=== PATIENT | male | born 1940 | race Caucasian/White ===

== ENCOUNTER 2023-02-06 15:47 | Emergency (ER) | payer MEDICARE, SELFPAY ==
[2023-02-06 15:49] VITALS: BP 158/100; PULSE 107; RESP 16; TEMP 36.6; O2SAT 99; BMI 23.9
--- NOTE | 2023-02-06 16:10 | EKG12_ITS ---
Test Reason : DIZZINESS Blood Pressure : / mmHG Vent. Rate : 093 BPM Atrial Rate : 093 BPM P-R Int : 174 ms QRS Dur : 086 ms QT Int : 346 ms P-R-T Axes : 045 047 021 degrees QTc Int : 430 ms Normal sinus rhythm Normal ECG No previous ECGs available Confirmed by RAN ODONNELL, KALIE ([id number]), supervising editor trailer LAMIN BENITEZ ([id number]) on 02/08/2023 2:27:43 PM Referred By: NATALIA Confirmed By:KALIE TONG MD
--- NOTE | 2023-02-06 16:10 | CT_ITS ---
STUDY: CT BRAIN WITHOUT CONTRAST REASON FOR EXAM: Male, 82 years old. Dizziness RADIATION DOSAGE (If Supplied By Facility): CTDIvol = ( 44.99 ) mGy, DLP = ( 796.11 ) mGycm TECHNIQUE: Transaxial CT imaging of the brain was performed without administration of intravenous contrast material. Individualized dose optimization techniques were used for this CT. COMPARISON: No relevant priors. FINDINGS: Normal soft tissue structures. Normal calvarium. There is moderate cerebral atrophy with widening of the extra-axial spaces and ventricular dilatation. There are areas of decreased attenuation within the white matter tracts of the supratentorial brain, consistent with microvascular disease changes. Normal basal ganglia and thalami. Normal brainstem. There is mild cerebellar atrophy. There is no intracranial hemorrhage. There are no findings of an acute ischemic infarction. Normal visualized paranasal sinuses. CT/Brain/Head without Contrast IMPRESSION: Chronic involutional changes of the brain, no acute hemorrhage. Electronically Signed: Burke Ruiz MD at 17:27 EDT ,
--- NOTE | 2023-02-06 16:12 | EX.ED.DYSGE1 ---
HPI History of Present Illness Chief Complaint: Dizziness Informant: patient and spouse/S.O. Narrative Narrative: Patient presents with dizziness. Patient states that he has had episodes of dizziness off and on for 10 or 15 years. They do not run in any pattern. They may be months apart or maybe a year or more apart. He is never really seen anyone for them. They normally go away within a couple days. They are very positional. He states for 5 days ago he had dizziness badly in the morning. Sometimes he almost feels like he is going to pass out but is more falling over. He states the biggest thing that reproduces it if he lays down on his left side then he rolls over to his right. This is pretty consistent in the reproducing his symptoms. Of note, he has chronic significant tinnitus in his left ear. He takes Ativan for that. He is otherwise quite healthy. He has no blood pressure diabetes cholesterol smoking history or history of heart or stroke problems. He feels quite well other than this intermittent dizziness. When he is not vertiginous he feels perfectly fine. His vertigo/dizziness is reproduced with motions. [facility] Medical History History of prostate disorder Home Medications lorazepam 1 mg tablet (Ativan) 1 mg PO DAILY PRN 03/09/22 [History Last Taken Unknown] meclizine 25 mg tablet 25 mg PO 4X/DAY PRN PRN Dizziness #20 tabs 02/06/23 [Rx Last Taken Unknown] Allergy/AdvReac Type Severity Reaction Status Date / Time Penicillins Allergy Intermediate Other Verified 02/06/23 15:51 sulfamethoxazole Allergy Mild Rash Verified 02/06/23 15:51 [From Bactrim] trimethoprim [From Bactrim] Allergy Mild Rash Verified 02/06/23 15:51 Family History Mother Breast cancer at age 64 Brother Heart disease Hypertension High cholesterol Surgical History Hernia Social History (Updated 02/06/23 @ 16:22 by Violeta Mahmood) household members: spouse housing: house Smoking Status: Never smoker alcohol intake: former substance use type: does not use what type of physical activity do you participate in: walking ROS ROS ED ROS Narrative A complete review of systems was performed and is negative except as documented in the history of present illness. Some specific details below. Constitutional: No recent fevers or chills. No malaise. EYE: No discharge, visual complaints, or pain. No visual field cut ENT: No difficulty swallowing. No swelling. No pain. No reflux symptoms. CV: No chest pain or palpitations. No syncope. Respiratory: No cough or trouble breathing. GI: No abdominal pain. No nausea vomiting diarrhea. No blood in stool. : No frequency dysuria or hematuria. Musculoskeletal: No recent trauma. No pains. No swelling. Skin: No rash. Nondiaphoretic. Neuro: No focal weakness or numbness. See history of present illness Endocrine: No polyuria or polydipsia. EXAM Physical Exam Narrative Exam Narrative: CONSTITUTIONAL: Patient is nontoxic in appearance. The patient looks comfortable. Work of breathing looks normal. HEENT: No notable trauma. Mucous membranes moist. No sinus tenderness. Hearing aids in both ears. EYES: No conjunctival injection. No proptosis. No pain with range of motion. No pallor. No visual field cut. NECK: No meningismus. No JVD. CARDIOVASCULAR: Regular rate. Regular rhythm. No notable murmur. No JVD. No muffled tones. RESPIRATORY: No respiratory distress. Breathing is unlabored. No wheezes. No rhonchi. No rales. No pain with a deep breath. GASTROINTESTINAL: Not distended. Bowel sounds are normal. No tenderness. No guarding. No rebound. No palpable mass. No bruit. GENITOURINARY: No tenderness over the bladder. No CVA tenderness. MUSCULOSKELETAL: Atraumatic. No peripheral edema. NEUROLOGICAL: Patient is alert and oriented. No focal deficit noted. NIH stroke scale is 0. I had the patient lay back and lay back looking to the right and he really got no symptoms at all. We had him roll to the left lay him back and he got mild dizziness with very subtle horizontal nystagmus. He then rolled over to the right side and after about 5 to 10 seconds of a delay, he got nystagmus and very dizzy. He does not get nauseated. He told me that this would be the motion that would cause his symptoms the most. SKIN: No noted rashes. No diaphoresis. No vesicles noted. No notable pallor. PSYCHIATRIC: Patient is calm. Mood is appropriate. Const Vital Signs: 02/06/23 15:49 02/06/23 16:36 02/06/23 18:00 Temperature 97.8 F Temperature Source Temporal Pulse Rate 107 H 94 66 Respiratory Rate 16 16 16 Blood Pressure 158/100 H 135/84 H Blood Pressure Mean 119 101 Pulse Ox 99 99 Oxygen Delivery Method Room Air Room Air MDM MDM MDM Narrative Medical decision making narrative: This patient despite his age really has no notable risk factors for stroke. He has had the symptoms off and on for more than a decade. Although they are not frequent. His exam and history is all consistent with positional vertigo. But with his age we will do further work-up. We were able to convince him to try some medicines and labs. He really does not want to get a CAT scan. He states he has significant claustrophobia and does not think he will be able to tolerate it. I told him we should at least give that a try. Patient CBC is normal. Patient's electrolytes are normal. Patient is glued is normal My independent interpretation of his CT shows out a related changes but is otherwise normal rate final reading shows chronic but no acute process. Patient is better with meds. We will try him on meclizine because he already has lorazepam at home for his tinnitus. He is comfortable with this. I do not think this patient needs to be admitted. He has had symptoms like this off and on for 10 or 15 years. They are extremely and very specifically motion related with no neurologic deficit and normal work-up after days of symptoms. Lab Data Attestation: I reviewed the patient's lab results. Labs: Laboratory Results - last 24 hr 02/06/23 16:30 WBC 6.0 RBC 5.03 Hgb 14.4 Hct 45.2 MCV 89.9 MCH 28.6 MCHC 31.9 L RDW Std Deviation 45.1 H RDW Coeff of Matty 13.9 Plt Count 161 MPV 10.1 Immature Gran % (Auto) 0.200 Neut % (Auto) 62.7 Lymph % (Auto) 25.7 [place] % (Auto) 8.9 Eos % (Auto) 2.0 Baso % (Auto) 0.5 Absolute Neuts (auto) 3.8 Absolute Lymphs (auto) 1.55 Nucleated RBC % 0 Sodium 140 Potassium 3.8 Chloride 105 Carbon Dioxide 27.0 Anion Gap 8 BUN 17 Creatinine 1.06 Estim Creat Clear Calc 51.88 Est GFR (MDRD) Af Amer 86 Est GFR (MDRD) Non-Af 71 BUN/Creatinine Ratio 16.0 Glucose 94 Calcium 9.6 Radiography Diagnostic Testing: Clinical Impression(s) from Imaging Studies Brain CT 02/06/23 16:10 IMPRESSION: Chronic involutional changes of the brain, no acute hemorrhage. Electronically Signed: Burke Ruiz MD at 17:27 EDT , Discharge Plan Triage Chief Complaint: Dizziness ED Provider: Isiah Benz Dx/Rx/DC Orders Clinical Impression: Vertigo Instructions: ED BPV Vertigo, ED Dizziness, Uncertain Cause Prescriptions: New meclizine 25 mg tablet 25 mg PO 4X/DAY PRN PRN (Reason: Dizziness) Qty: 20 0RF No Action lorazepam [Ativan] 1 mg tablet 1 mg PO DAILY PRN Rx Instructions: 1 or 2 tabs Primary Care Provider: Yonatan Soto Referrals: Yonatan Soto MD [Primary Care Provider] - 3-5 Days if not improving Disposition Disposition: Home, Self Care Discharge Date/Time: 02/06/23 18:07
--- NOTE | 2023-02-06 16:15 | NURSING ---
NO OLD EKG
[2023-02-06] MEDS: diazePAM 2 MG Tablet 4 MG PO (16:33)
[2023-02-06 16:36] VITALS: PULSE 94; RESP 16
[2023-02-06] MEDS: 0.9% Normal Saline (500mL Bag) 500 ML 1000 ML IV (16:39)
[2023-02-06 16:43] LABS: Absolute Lymphocyte Count 1.55 X10^3/uL (0.83-4.51); Absolute Neutrophil Count 3.8 X10^3/uL (2.0-7.7); Basophil# 0.03 X10^3/uL; Basophil% 0.5 % (0-1); Eosinophil# 0.12 X10^3/uL; Hematocrit 45.2 % (40-54); Hemoglobin 14.4 g/dL (13.0-16.5); Lymphocyte # 1.55 X10^3/ul (0.83-4.51); Lymphocyte % 25.7 % (19-41); Mean Corp Hgb Conc 31.9 g/dL (32-36); Mean Corpuscular Hgb 28.6 pg (27.0-32.0); Mean Corpuscular Volume 89.9 fL (80-94); Mean Platelet Vol. 10.1 fl (6.2-12.0); Monocyte# 0.54 X10^3/uL; Monocyte% 8.9 % (0-10); NRBC Flagged by Analyzer 0 % (0-5); Neutrophil # 3.79 X10^3/uL (2.7-7.7); Neutrophil % 62.7 % (47-70); Platelet Count 161 K/mm3 (150-450); RBC Distribution Width CV 13.9 % (11.6-14.6); RBC Distribution Width SD 45.1 fl (35.1-43.9); Red Blood Count 5.03 M/mm3 (4.6-6.2)
[2023-02-06 16:57] LABS: Anion Gap 8 (5-15); BUN 17 mg/dL (7-18); Calcium,Total 9.6 mg/dL (8.5-10.1); Chloride 105 mmol/L (98-107); Creatinine, Serum 1.06 mg/dL (0.70-1.30); EST Glomerular Filtration Rate 71 mL/min (>60); Est Glom Filt Rate - Afr Amer 86 mL/min (>60); Estimated Creatinine Clearance 51.88 ml/min; Glucose 94 mg/dL (74-106); Potassium 3.8 mmol/L (3.5-5.1); Sodium Level 140 mmol/L (136-145)
[2023-02-06 18:00] VITALS: BP 135/84; PULSE 66; RESP 16; O2SAT 99
== END 2023-02-06 18:07 | disposition home or self-care (01) ==
PROVIDERS: Emergency Provider Emergency Medicine; PCP Family Medicine; Visit Provider Emergency Medicine
DX: R42 Dizziness and giddiness (principal); H93.12 Tinnitus, left ear; F40.240 Claustrophobia
CPT/HCPCS: 70450; 80048; 85025; 93005; 96360; 99284; J7040